=== PATIENT | male | born 1985 ===

== ENCOUNTER 2017-05-28 14:09 | Inpatient (IN) | payer MEDICAID, OTHER ==
[2017-05-28] MEDS ORDERED: Cefepime 1 GM in Sodium Chloride 0.9% 50 ML IVPB STA (14:48)
[2017-05-28 14:52] LABS: BASO % 0.6 % (0.0-2.0); EOS # 0.3 K/uL (0.0-0.7); HEMOGLOBIN 15.2 g/dL (12.0-18.0); LYMPH # 2.5 K/uL (1.0-4.3); LYMPH % 30.7 % (20.0-40.0); MEAN CELL VOLUME 85.9 fL (80.0-94.0); MEAN CORPUSCULAR HEMOGLOBIN 29.9 pg (27.0-31.0); MEAN CORPUSCULAR HGB CONC 34.8 g/dL (33.0-37.0); MEAN PLATELET VOLUME 7.7 fL (7.2-11.7); MONO # 0.8 K/uL (0.0-0.8); MONO % 10.4 % (0.0-10.0); NEUT # 4.3 K/uL (1.8-7.0); NEUT % 54.3 % (50.0-75.0); NRBC % 0.2 % (0.0-2.0); RBC 5.08 Mil/uL (4.40-5.90); RED CELL DISTRIBUTION WIDTH 13.4 % (11.5-14.5)
[2017-05-28 15:12] LABS: ALB/GLOB RATIO 1.2 (1.0-2.1); ALBUMIN 4.5 g/dL (3.5-5.0); ALT/SGPT 80 U/L (21-72); AST/SGOT 43 U/L (17-59); BLOOD UREA NITROGEN 13 mg/dL (9-20); CALCIUM 9.5 mg/dl (8.6-10.4); GFR AFRICAN-AMERICAN > 60; GFR NON-AFRICAN AMERICAN > 60
--- NOTE | 2017-05-28 15:14 | C.PDOC ---
History Of Present Illness 31 year old male presents to the ED for evaluation of an abscess/swelling to his left hand which started after a injury 1 month ago. 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 Patient was evaluated at a local hospital and given prescriptions for antibiotics, but states he could was unable to fill them because he could not afford it. Patient states the area has gotten bigger and more painful, and presents to the ED for further evaluation. He denies fever , chills, discharge, other injuries. Patient has h/i heroin IVDA, denies injecting into affected area. Time Seen by Provider: 05/28/17 14:22 Chief Complaint (Nursing): Abnormal Skin Integrity History Per: Patient History/Exam Limitations: no limitations Onset/Duration Of Symptoms: Other (1 month ) Current Symptoms Are (Timing): Still Present Location Of Injury: Left: Hand Quality Of Symptoms: Painful Severity: Moderate Additional History Per: Patient Past Medical History Reviewed: Historical Data, Nursing Documentation, Vital Signs Vital Signs: Last Vital Signs Temp 98.2 F 05/29/17 00:13 Pulse 65 05/29/17 00:13 Resp 20 05/29/17 00:13 BP 113/82 05/29/17 00:13 Pulse Ox 99 05/29/17 00:13 - Medical History PMH: No Chronic Diseases Surgical History: No Surg Hx Family History: States: No Known Family Hx - Social History Hx Alcohol Use: No Hx Substance Use: Yes Review Of Systems Except As Marked, All Systems Reviewed And Found Negative. Constitutional: Negative for: Fever, Chills Skin: Positive for: Other (abscess/swelling to left hand ) Neurological: Negative for: Weakness, Numbness Physical Exam - Physical Exam Appears: Well, Non-toxic, No Acute Distress Skin: Normal Color, Warm, Dry, Other (abscess to dorsum of left hand (approx3- 4cm in diameter), fluctuant. puncture wound at left thenar eminence with local swelling extending to dorsum of hand, (+) TTP, no overlying erythema/cellulitis ) Eye(s): bilateral: Normal Inspection Oral Mucosa: Moist Neck: Supple Cardiovascular: Rhythm Regular Respiratory: Normal Breath Sounds, No Rales, No Rhonchi, No Wheezing Extremity: Normal ROM, Capillary Refill (< 2 seconds all digits, (+) TTP at dorsum and thenar eminence of hand (left)) Extremity: Bilateral: Normal Color And Temperature Pulses: Left Radial: Normal, Right Radial: Normal Neurological/Psych: Oriented x3, Normal Sensation ED Course And Treatment - Laboratory Results Result Diagrams: 05/28/17 14:49 05/28/17 14:49 O2 Sat by Pulse Oximetry: 99 (on RA) Pulse Ox Interpretation: Normal - CT Scan/US CT Upper Left Extremity Other Rad Studies (CT/US): Read By Radiologist, Radiology Report Reviewed CT/US Interpretation: PROCEDURE: LEFT HAND CT WITH CONTRAST. HISTORY: LEFT HAND ABSCESS, R/O FOREIGN BODY. COMPARISON: None. TECHNIQUE: Evaluations CT of the proximal to mid hand is been performed with multiplanar reformatted datasets provided for interpretation following the intravenous administration of 100 cc of Omnipaque 350. The tuft of the long finger was not included in the CT examination. FINDINGS: A fluid collection measuring 2.6 x 1.6 x 2.6 cm ( transverse by a anteroposterior by superoinferior dimensions) is identified including a segment of the extensor digitorum longus tendon of the 3rd digit. The tendon appears within this collection. Enhancing in the periphery is present. There is no preliminary non contrast imaging. The pattern therefore suggest probable abscess with the finding representing infectious tenosynovitis including abscess or possibly infected ganglion. Further clinical correlation is advised. There is also prominent soft tissue/ phlegmon seen associate with the linear hyperdensity extending to the volar margins of this abscess between the 2nd and 3rd metacarpal bones at the mid diaphysis level terminating in the region of the hypo thenar eminence distally. It measures approximate 39.0 by 2 mm and is suspicious for a retained radiodense foreign body. None a does not appear to extend into the abscess in the dorsal hand soft tissues but also there appears to be a small area periosteal reaction at the radial side of the proximal metaphysis for left metacarpal bone suspicious for osteomyelitis. The differs diagnosis is posttraumatic periostitis. The foreign body not be visible on fluoroscopy. Prominent phlegmon is seen at the medial hand soft tissues without abscess including the deep portion of the thenar eminence. No fracture or destructive bony lesions appreciated throughout the bones of the left hand and there is no subluxation or dislocation identified either. No additional suspicious fluid collection. IMPRESSION: A linear retained radiodense foreign body is suspected in the bilateral hand soft tissues extending from the level of the deep thenar eminence through the space between the 2nd and 3rd metacarpal bones terminating in an abscess status surrounds the extensor digitorum longus tendon. While this linear density is faintly appreciable on CT , it is probably not visible on fluoroscopy and may be difficult to localize. Osteomyelitis is felt to likely be developing at the periosteum of the proximal metaphysis radial side 3rd metacarpal bone although this could be posttraumatic. You be difficult to exclude osteomyelitis here even with MRI most likely, however, MRI without contrast can be performed for additional characterization of this finding. Posttraumatic periostitis is unlikely given this reportedly a fragment from a palm leaf. Progress Note: Blood work, CT extremity ordered and reviewed. Patient given IV Vancomycin and Cefepime. He states he has PCN from childhood, but denies known reaction and has taken amoxicillin as adult without allergic reaction. 5:30pm- Discussed patient with Dr. Hanks hand surgeon - would like surgery resident to come and see patient, and admission under medical service. Resident called and made aware. 5:45pm- Spoke with Dr. Natalia Ladd hospitalist, states patient should be surgical admission instead. Dr. Hanks made aware, pending surgery resident evaluation and will get back to me. 6:15PM- Patient seen by assembler surgical garment, who discussed case with Dr. Hanks. She instructs that resident do I&D of abscess at bedside and discharge. Will speak with medicine for admission - patient has retained FB with tenosynovitis and possible osteomyelitis. 6:30pm- Spoke with hospitalist Dr. Natalia Ladd, agrees with admission to medical service for left hand retained foreign body, tenosynovitis, possible osteomyelitis. Disposition - Disposition Disposition: HOSPITALIZED Disposition Time: 18:36 Condition: STABLE - Clinical Impression Clinical Impression: Foreign body of hand, left, Infectious tenosynovitis, Osteomyelitis of hand - Scribe Statement The provider has reviewed the documentation as recorded by the Scribe (Yakelin Ladd) Provider Attestation: All medical record entries made by the Scribe were at my direction and personally dictated by me. I have reviewed the chart and agree that the record accurately reflects my personal performance of the history, physical exam, medical decision making, and the department course for this patient. I have also personally directed, reviewed, and agree with the discharge instructions and disposition. Decision To Admit - Pt Status Changed To: Hospital Disposition Of: Inpatient - Admit Certification Admit to Inpatient:: After my assessment, the patient will require hospitalization for at least two midnights. This is because of the severity of symptoms shown, intensity of services needed, and/or the medical risk in this patient being treated as an outpatient. - InPatient: Physician Admission Certification: I certify that this patient requires 2 or more midnights of care for the following reason:: see notes - . Bed Request Type: Regular Admitting Physician: Alfonzo Daniels Patient Diagnosis: Foreign body of hand, left, Infectious tenosynovitis, Osteomyelitis of hand
[2017-05-28] MEDS ORDERED: Cefepime IV 1 gm in Dextrose 1 GM/50 ML BAG IVPB ONE (15:30)
[2017-05-28] MEDS ORDERED: Iohexol 350mg/ml 100 ML ONE (15:52)
--- NOTE | 2017-05-28 17:52 | CT ---
PROCEDURE: LEFT HAND CT WITH CONTRAST HISTORY: LEFT HAND ABSCESS, R/O FOREIGN BODY COMPARISON: None TECHNIQUE: Evaluations CT of the proximal to mid hand is been performed with multiplanar reformatted datasets provided for interpretation following the intravenous administration of 100 cc of Omnipaque 350. The tuft of the long finger was not included in the CT examination. FINDINGS: A fluid collection measuring 2.6 x 1.6 x 2.6 cm (transverse by a anteroposterior by superoinferior dimensions) is identified including a segment of the extensor digitorum longus tendon of the 3rd digit. The tendon appears within this collection. Enhancing in the periphery is present. There is no preliminary non contrast imaging. The pattern therefore suggest probable abscess with the finding representing infectious tenosynovitis including abscess or possibly infected ganglion. Further clinical correlation is advised. There is also prominent soft tissue/ phlegmon seen associate with the linear hyperdensity extending to the volar margins of this abscess between the 2nd and 3rd metacarpal bones at the mid diaphysis level terminating in the region of the hypo thenar eminence distally. It measures approximate 39.0 by 2 mm and is suspicious for a retained radiodense foreign body. None a does not appear to extend into the abscess in the dorsal hand soft tissues but also there appears to be a small area periosteal reaction at the radial side of the proximal metaphysis for left metacarpal bone suspicious for osteomyelitis. The differs diagnosis is posttraumatic periostitis. The foreign body not be visible on fluoroscopy. Prominent phlegmon is seen at the medial hand soft tissues without abscess including the deep portion of the thenar eminence. No fracture or destructive bony lesions appreciated throughout the bones of the left hand and there is no subluxation or dislocation identified either. No additional suspicious fluid collection. IMPRESSION: A linear retained radiodense foreign body is suspected in the bilateral hand soft tissues extending from the level of the deep thenar eminence through the space between the 2nd and 3rd metacarpal bones terminating in an abscess status surrounds the extensor digitorum longus tendon. While this linear density is faintly appreciable on CT, it is probably not visible on fluoroscopy and may be difficult to localize. Osteomyelitis is felt to likely be developing at the periosteum of the proximal metaphysis radial side 3rd metacarpal bone although this could be posttraumatic. You be difficult to exclude osteomyelitis here even with MRI most likely, however, MRI without contrast can be performed for additional characterization of this finding. Posttraumatic periostitis is unlikely given this reportedly a fragment from a palm leaf. Discussed with Dr. Xavier with written down and read back verification 05/28/2017, 5:40 p.m..
[2017-05-28] MEDS ORDERED: Lidocaine 2% Inj (20ml) ONE (18:26)
--- NOTE | 2017-05-28 19:02 | CP.PCM.HP ---
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 Patient was evaluated at a local hospital and given prescriptions for antibiotics, but states he could was unable to fill them because he could not afford it. Patient states the abscess has gotten bigger and more painful, and presents to the ED for further evaluation. Patient had tried to drain it by stabbing his hand per patient's description. He said it was draining green pus but stopped when the opening healed. Patient was discharged from a local hospital with a prescription for antibiotics but could not fill prescriptions due to financial issues. Patient reports gradual onset of symptoms which have gotten worse. Pain is moderate but constant and aching throughout left hand. He denies fever, chills, discharge, other injuries. j PMH: none Surgical history: Appendectomy at age 17 Family history: non-contributory social: heroine (injections, last use a couple of days ago), Patient states he lives in a assisted house PMD: none Allergy: PCN Present on Admission - Present on Admission Any Indicators Present on Admission: No History of DVT/PE: No History of Uncontrolled Diabetes: No Urinary Catheter: No Decubitus Ulcer Present: No Past Patient History - Past Social History Smoking Status: Heavy Smoker > 10 Cigarettes Daily - PSYCHIATRIC Hx Substance Use: Yes Meds Allergies/Adverse Reactions: Allergies Allergy/AdvReac Type Severity Reaction Status Date / Time Penicillins Allergy Verified 05/28/17 14:26 Physical Exam - Constitutional Appears: Non-toxic, No Acute Distress - Head Exam Head Exam: ATRAUMATIC, NORMAL INSPECTION, NORMOCEPHALIC - Eye Exam Eye Exam: EOMI, Normal appearance Pupil Exam: NORMAL ACCOMODATION, PERRL - ENT Exam ENT Exam: Mucous Membranes Moist, Normal Exam - Neck Exam Neck exam: Positive for: Full Rom, Normal Inspection. Negative for: Thyromegaly - Respiratory Exam Respiratory Exam: Clear to Auscultation Bilateral, NORMAL BREATHING PATTERN - Cardiovascular Exam Cardiovascular Exam: REGULAR RHYTHM, +S1, +S2 - GI/Abdominal Exam GI & Abdominal Exam: Normal Bowel Sounds, Soft. absent: Diminished Bowel Sounds - Extremities Exam Extremities exam: Negative for: full ROM, pedal edema Additional comments: Left hand has palmar surface with healed puncture wound to thenar eminence, tenderness to palpation, abscess present on dorsal surface, decreased L hand strength, no erythema on hand - Back Exam Back exam: FULL ROM, NORMAL INSPECTION - Neurological Exam Neurological exam: CN II-XII Intact, Normal Gait, Oriented x3 Results - Vital Signs Recent Vital Signs: Last Vital Signs Temp 97.8 F 05/28/17 14:23 Pulse 75 05/28/17 14:23 Resp 20 05/28/17 14:23 BP 133/75 05/28/17 14:23 Pulse Ox 99 05/28/17 18:53 - Labs Result Diagrams: 05/28/17 14:49 05/28/17 14:49 Labs: Laboratory Results - last 24 hr 05/28/17 05/28/17 14:49 14:49 WBC 8.0 RBC 5.08 Hgb 15.2 Hct 43.6 MCV 85.9 MCH 29.9 MCHC 34.8 RDW 13.4 Plt Count 294 MPV 7.7 Neut % (Auto) 54.3 Lymph % (Auto) 30.7 Cannon % (Auto) 10.4 H Eos % (Auto) 4.0 Baso % (Auto) 0.6 Neut # (Auto) 4.3 Lymph # (Auto) 2.5 [place] # (Auto) 0.8 Eos # (Auto) 0.3 Baso # (Auto) 0.0 Sodium 140 Potassium 3.9 Chloride 100 Carbon Dioxide 27 Anion Gap 17 BUN 13 Creatinine 0.9 Est GFR ( Amer) > 60 Est GFR (Non-Af Amer) > 60 Random Glucose 101 Calcium 9.5 Total Bilirubin 0.7 AST 43 ALT 80 H Alkaline Phosphatase 73 Total Protein 8.4 H Albumin 4.5 Globulin 3.9 Albumin/Globulin Ratio 1.2 Assessment & Plan - Assessment and Plan (Free Text) Assessment: f/u CXR, EKG, PT INR OR 05/29 for I&D. 31 M with Left hand foreign body and abscess for OR 05/29/17 abscess of left hand, osteomyelitis CT upper extremity with Contrast Omnipaque 350 contrast: linear retained radiodense foreign body. 2nd and 3rd metacarpal bones terminating in absces around extensor digitorum longus tendon. osteomyelitis is likely to be developing at periosteum of proximal metaphysis radial side 3rd metacarpal bone. -NPO past midnight f/u blood culture COAG ordered CXR: no signs of active disease EKG ED: cefepime 1gm Cefepime IV 2gm Q12H Vancomycin 1gm IVPB Q12H Hand Surgeon Consult: Dr. Hanks Infectious disease consult: Dr. Hammer History of Heroine use Urine drug screen: positive for THC and Opioids Pain: Toradol 30mg IVP Q6H PRN, toradol 15mg IVP Q6H PRN Nicotine 14mg/ 24hr CQ 1 patch TD Daily Prophylaxis: Protonix 40mg PO QD SCDs, hold medical/chemical anticoagulation for procedure Patient is medically optimized for OR tomorrrow (05/29) for Incision and Drainage Nazanin Kim DO PGY1 - Date & Time Date: 05/28/17 Time: 21:17 <Alfonzo Daniels P - Last Filed: 05/29/17 03:04> Results - Vital Signs Recent Vital Signs: Last Vital Signs Temp 98.2 F 05/29/17 00:13 Pulse 65 05/29/17 00:13 Resp 20 05/29/17 00:13 BP 113/82 05/29/17 00:13 Pulse Ox 99 05/29/17 00:13 - Labs Result Diagrams: 05/28/17 14:49 05/28/17 14:49 Labs: Laboratory Results - last 24 hr 05/28/17 05/28/17 05/28/17 14:49 14:49 18:51 WBC 8.0 RBC 5.08 Hgb 15.2 Hct 43.6 MCV 85.9 MCH 29.9 MCHC 34.8 RDW 13.4 Plt Count 294 MPV 7.7 Neut % (Auto) 54.3 Lymph % (Auto) 30.7 Cannon % (Auto) 10.4 H Eos % (Auto) 4.0 Baso % (Auto) 0.6 Neut # (Auto) 4.3 Lymph # (Auto) 2.5 [place] # (Auto) 0.8 Eos # (Auto) 0.3 Baso # (Auto) 0.0 PT INR APTT Sodium 140 Potassium 3.9 Chloride 100 Carbon Dioxide 27 Anion Gap 17 BUN 13 Creatinine 0.9 Est GFR ( Amer) > 60 Est GFR (Non-Af Amer) > 60 Random Glucose 101 Calcium 9.5 Total Bilirubin 0.7 AST 43 ALT 80 H Alkaline Phosphatase 73 Total Protein 8.4 H Albumin 4.5 Globulin 3.9 Albumin/Globulin Ratio 1.2 Urine Opiates Screen Positive H Urine Methadone Screen Negative Ur Barbiturates Screen Negative Ur Phencyclidine Scrn Negative Ur Amphetamines Screen Negative U Benzodiazepines Scrn Negative U Oth Cocaine Metabols Negative U Cannabinoids Screen Positive H Blood Type Antibody Screen 05/28/17 05/28/17 19:57 20:01 WBC RBC Hgb Hct MCV MCH MCHC RDW Plt Count MPV Neut % (Auto) Lymph % (Auto) [place] % (Auto) Eos % (Auto) Baso % (Auto) Neut # (Auto) Lymph # (Auto) [place] # (Auto) Eos # (Auto) Baso # (Auto) PT 11.2 INR 1.0 APTT 33 Sodium Potassium Chloride Carbon Dioxide Anion Gap BUN Creatinine Est GFR ( Amer) Est GFR (Non-Af Amer) Random Glucose Calcium Total Bilirubin AST ALT Alkaline Phosphatase Total Protein Albumin Globulin Albumin/Globulin Ratio Urine Opiates Screen Urine Methadone Screen Ur Barbiturates Screen Ur Phencyclidine Scrn Ur Amphetamines Screen U Benzodiazepines Scrn U Oth Cocaine Metabols U Cannabinoids Screen Blood Type A POSITIVE Antibody Screen Negative Attending/Attestation - Attestation I have personally seen and examined this patient.: Yes I have fully participated in the care of the patient.: Yes I have reviewed all pertinent clinical information: Yes Notes (Text): 05/29/17 03:02 Left hand abscess dorsal to 3 metacarpal, h/o injury 1 month back with recent worsening, CT suspicious of foreign body, patient has h/o heroin abuse iv, tobacco abuse, mentions has hepc not treated, unsure of HIV. Plan Clinda and cefepime Hand surg MRI if hand surg suggest to r/o om Hep panel, hiv screening Counselled about substance abuse.
[2017-05-28 19:09] LABS: BARBITURATES, UR NEGATIVE (NEGATIVE); BENZODIAZEPINES, UR NEGATIVE (NEGATIVE); PHENCYCLIDINE, UR NEGATIVE (NEGATIVE)
--- NOTE | 2017-05-28 19:10 | CP.PCM.CON ---
History of Present Illness - History of Present Illness History of Present Illness: Plastics Hand surgery Consult Note for Dr. Hanks Reason for consult: foreign body and abscess of left hand 31 M with PMH of IVDA presents to [facility] for complaint of L hand wound and abscess. Patient was seen and evaluated in the ED. 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 Patient reports that he was moving a palm tree when a piece of the tree punctured his left hand. Patient states that he went to be seen at a local hospital. He was discharged with a prescription for antibiotics, but did not fill the prescriptions due to financial issues. He reports gradual onset of symptoms that have gotten progressively worse. He rates the pain as moderate. He describes it as constant and aching located throughout left hand. Movement makes pain worse while rest alleviates it. He admits to associated chills. Denies fevers, chest pain, sob, palpitations, nausea/vomtining, diarrhea, numbness/tingling. PMD: denies PMH: IVDA Meds: denies Allergy: PCN PSH: Appendectomy at age 17 FH: non-contributory Social: current smoker - smokes few cigarettes per day, denies EtOH, admits to illicit drug use - IV heroin, states he last used a "couple" bags was yesterday Review of Systems - Review of Systems All systems: reviewed and no additional remarkable complaints except (12 point ROS performed and found to be negative unless otherwise stated in HPI) Past Patient History - Past Social History Smoking Status: Heavy Smoker > 10 Cigarettes Daily - PSYCHIATRIC Hx Substance Use: Yes Meds Allergies/Adverse Reactions: Allergies Allergy/AdvReac Type Severity Reaction Status Date / Time Penicillins Allergy Verified 05/28/17 14:26 - Medications Medications: Current Medications Cefepime HCl (Maxipime Iv 2 Gm Premix) 2 gm in 100 mls @ 200 mls/hr IVPB Q12H DELILAH PRN Reason: Protocol Stop: 06/03/17 03:01 Vancomycin/Sodium Chloride (Vancomycin 1 Gm/Ns 200 Ml) 1 gm in 200 mls @ 166.6 mls/hr IVPB Q12H DELILAH PRN Reason: Protocol Stop: 06/02/17 04:01 Ketorolac Tromethamine (Toradol) 30 mg IVP Q6 PRN PRN Reason: Pain, severe (8-10) Ketorolac Tromethamine (Toradol) 15 mg IVP Q6 PRN PRN Reason: Pain, moderate (4-7) Nicotine (Nicoderm Cq) 1 patch TD DAILY [facility] Pantoprazole Sodium (Protonix Ec Tab) 40 mg PO DAILY [facility] Saccharomyces Boulardii (Florastor) 250 mg PO BID DELILAH Physical Exam - Constitutional Appears: Non-toxic, No Acute Distress - Head Exam Head Exam: ATRAUMATIC, NORMOCEPHALIC - Eye Exam Eye Exam: EOMI, Normal appearance Pupil Exam: PERRL - ENT Exam ENT Exam: Mucous Membranes Moist - Neck Exam Neck exam: Negative for: Tenderness - Respiratory Exam Respiratory Exam: NORMAL BREATHING PATTERN - Cardiovascular Exam Cardiovascular Exam: REGULAR RHYTHM - GI/Abdominal Exam GI & Abdominal Exam: Soft. absent: Distended, Guarding, Rebound, Tenderness - Extremities Exam Extremities exam: Positive for: normal capillary refill, pedal pulses present. Negative for: calf tenderness Additional comments: L hand: palmar surface with healed puncture wound to thenar eminence, abscess present on dosrum surface, tender to palpation, decreased L hand strength, no evidence of erythema anywhere - Back Exam Back exam: absent: CVA tenderness (L), CVA tenderness (R) - Neurological Exam Neurological exam: Alert, CN II-XII Intact, Oriented x3 - Psychiatric Exam Psychiatric exam: Normal Affect, Normal Mood - Skin Skin Exam: Dry, Intact, Normal Color, Warm Results - Vital Signs Recent Vital Signs: Last Vital Signs Temp 97.8 F 05/28/17 14:23 Pulse 75 05/28/17 14:23 Resp 20 05/28/17 14:23 BP 133/75 05/28/17 14:23 Pulse Ox 99 05/28/17 18:53 - Labs Result Diagrams: 05/28/17 14:49 05/28/17 14:49 Labs: Laboratory Results - last 24 hr 05/28/17 05/28/17 14:49 14:49 WBC 8.0 RBC 5.08 Hgb 15.2 Hct 43.6 MCV 85.9 MCH 29.9 MCHC 34.8 RDW 13.4 Plt Count 294 MPV 7.7 Neut % (Auto) 54.3 Lymph % (Auto) 30.7 [place] % (Auto) 10.4 H Eos % (Auto) 4.0 Baso % (Auto) 0.6 Neut # (Auto) 4.3 Lymph # (Auto) 2.5 [place] # (Auto) 0.8 Eos # (Auto) 0.3 Baso # (Auto) 0.0 Sodium 140 Potassium 3.9 Chloride 100 Carbon Dioxide 27 Anion Gap 17 BUN 13 Creatinine 0.9 Est GFR ( Amer) > 60 Est GFR (Non-Af Amer) > 60 Random Glucose 101 Calcium 9.5 Total Bilirubin 0.7 AST 43 ALT 80 H Alkaline Phosphatase 73 Total Protein 8.4 H Albumin 4.5 Globulin 3.9 Albumin/Globulin Ratio 1.2 Assessment & Plan - Assessment and Plan (Free Text) Plan: 31 M with L hand foreign body and abscess -NPO -IV fluids -IV antibiotics -Analgesics PRN -I&D with washout in OR tomorrow morning, time pending -Discussed with Dr. Demario Mcallister PGY1
[2017-05-28 19:15] LABS: OPIATES, UR POSITIVE (NEGATIVE)
[2017-05-28] MEDS: Vancomycin 1 gm/NS 200 ml 1 GM/200 ML BAG IVPB SCH ×2 (19:15→19:16)
[2017-05-28] MEDS ORDERED: Saccharomyces Boulardi 250 mg Cap PO SCH (20:00)
[2017-05-28] MEDS ORDERED: Pantoprazole 40 mg EC Tab PO SCH (20:00)
[2017-05-28] MEDS ORDERED: Pantoprazole 40 mg EC Tab PO ONE (20:04)
[2017-05-28 20:11] LABS: PROTHROMBIN TIME 11.2 SECONDS (9.7-12.2)
[2017-05-28 20:35] VITALS: RESP 20
[2017-05-28] MEDS: Clindamycin 300 MG in Sodium Chloride 0.9% 100 ML IVPB SCH (22:58)
[2017-05-29 00:15] VITALS: BP 113/82; PULSE 65; TEMP 98.2; O2SAT 99
[2017-05-29] MEDS ORDERED: Cefepime IV 2 gm in Dextrose 2 GM/100 ML BAG IVPB SCH (03:00)
[2017-05-29] MEDS: Clindamycin 300 MG in Sodium Chloride 0.9% 100 ML IVPB SCH (05:30)
--- NOTE | 2017-05-29 07:54 | CP.PCM.DIS ---
<Edward Jaquez S - Last Filed: 05/29/17 08:16> Provider - Provider Date of Admission: 05/28/17 18:36 Attending physician: Dr. Pacheco Ladd Consults: Surgery: Dr. Hanks Time Spent in preparation of Discharge (in minutes): 35 Diagnosis - Discharge Diagnosis (1) Left against medical advice Status: Acute Hospital Course - Lab Results Lab Results: Most Recent Lab Values WBC 8.0 K/uL (4.8-10.8) 05/28/17 14:49 RBC 5.08 Mil/uL (4.40-5.90) 05/28/17 14:49 Hgb 15.2 g/dL (12.0-18.0) 05/28/17 14:49 Hct 43.6 % (35.0-51.0) 05/28/17 14:49 MCV 85.9 fL (80.0-94.0) 05/28/17 14:49 MCH 29.9 pg (27.0-31.0) 05/28/17 14:49 MCHC 34.8 g/dL (33.0-37.0) 05/28/17 14:49 RDW 13.4 % (11.5-14.5) 05/28/17 14:49 Plt Count 294 K/uL (130-400) 05/28/17 14:49 MPV 7.7 fL (7.2-11.7) 05/28/17 14:49 Neut % (Auto) 54.3 % (50.0-75.0) 05/28/17 14:49 Lymph % (Auto) 30.7 % (20.0-40.0) 05/28/17 14:49 [place] % (Auto) 10.4 % (0.0-10.0) H 05/28/17 14:49 Eos % (Auto) 4.0 % (0.0-4.0) 05/28/17 14:49 Baso % (Auto) 0.6 % (0.0-2.0) 05/28/17 14:49 Neut # (Auto) 4.3 K/uL (1.8-7.0) 05/28/17 14:49 Lymph # (Auto) 2.5 K/uL (1.0-4.3) 05/28/17 14:49 [place] # (Auto) 0.8 K/uL (0.0-0.8) 05/28/17 14:49 Eos # (Auto) 0.3 K/uL (0.0-0.7) 05/28/17 14:49 Baso # (Auto) 0.0 K/uL (0.0-0.2) 05/28/17 14:49 PT 11.2 SECONDS (9.7-12.2) 05/28/17 19:57 INR 1.0 05/28/17 19:57 APTT 33 SECONDS (21-34) 05/28/17 19:57 Sodium 140 mmol/L (132-148) 05/28/17 14:49 Potassium 3.9 mmol/L (3.6-5.2) 05/28/17 14:49 Chloride 100 mmol/L (98-107) 05/28/17 14:49 Carbon Dioxide 27 mmol/L (22-30) 05/28/17 14:49 Anion Gap 17 (10-20) 05/28/17 14:49 BUN 13 mg/dL (9-20) 05/28/17 14:49 Creatinine 0.9 mg/dL (0.8-1.5) 05/28/17 14:49 Est GFR ( Amer) > 60 05/28/17 14:49 Est GFR (Non-Af Amer) > 60 05/28/17 14:49 Random Glucose 101 mg/dL (75-110) 05/28/17 14:49 Calcium 9.5 mg/dl (8.6-10.4) 05/28/17 14:49 Total Bilirubin 0.7 mg/dL (0.2-1.3) 05/28/17 14:49 AST 43 U/L (17-59) 05/28/17 14:49 ALT 80 U/L (21-72) H 05/28/17 14:49 Alkaline Phosphatase 73 U/L (38-126) 05/28/17 14:49 Total Protein 8.4 g/dL (6.3-8.3) H 05/28/17 14:49 Albumin 4.5 g/dL (3.5-5.0) 05/28/17 14:49 Globulin 3.9 gm/dL (2.2-3.9) 05/28/17 14:49 Albumin/Globulin Ratio 1.2 (1.0-2.1) 05/28/17 14:49 Urine Opiates Screen Positive (NEGATIVE) H 05/28/17 18:51 Urine Methadone Screen Negative (NEGATIVE) 05/28/17 18:51 Ur Barbiturates Screen Negative (NEGATIVE) 05/28/17 18:51 Ur Phencyclidine Scrn Negative (NEGATIVE) 05/28/17 18:51 Ur Amphetamines Screen Negative (NEGATIVE) 05/28/17 18:51 U Benzodiazepines Scrn Negative (NEGATIVE) 05/28/17 18:51 U Oth Cocaine Metabols Negative (NEGATIVE) 05/28/17 18:51 U Cannabinoids Screen Positive (NEGATIVE) H 05/28/17 18:51 Blood Type A POSITIVE 05/28/17 20:01 Antibody Screen Negative 05/28/17 20:01 - Hospital Course Hospital Course: Initial note: "31 year old male presents to the ED for evaluation of an abscess/swelling to his left hand which started after a 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 Patient was evaluated at a local hospital and given prescriptions for antibiotics, but states he could was unable to fill them because he could not afford it. Patient states the abscess has gotten bigger and more painful, and presents to the ED for further evaluation. Patient had tried to drain it by stabbing his hand per patient's description. He said it was draining green pus but stopped when the opening healed. Patient was discharged from a local hospital with a prescription for antibiotics but could not fill prescriptions due to financial issues. Patient reports gradual onset of symptoms which have gotten worse. Pain is moderate but constant and aching throughout left hand. He denies fever, chills, discharge, other injuries." Hospital course: Patient admitted for retained foreign object and tenosynovitis in the left hand. Patient was to undergo I&D in the OR; however, he was witnessed eating a sandwich this morning at around 7:45 AM. Patient states that he did not know he was supposed to be NPO despite multiple people explaining this to him including surgical team. Patient's IV line came out early in the morning, and he refused re-insertion. I saw the patient in the presence of Dr. Hanks and the surgical technology instructor team. Dr. Hanks explained to the patient that since he will not be getting the surgery today due to his eating, he may be discharged home with outpatient follow up. At this point, the patient proceeded to put his clothes on and vocalize his intentions of leaving. He also stated that he does not wish to follow up in Dr. Hanks's office. The patient has the capacity to make this informed decision and understands explanation of the current medical problem and risks of leaving. The risks of leaving versus the benefits of staying were discussed with the patient, and I was going to provide him with follow up instructions for the [facility], Dr. Hanks's office information , and an antibiotic prescription. However, the patient had left the floor while I was notifying the attending. Code Echo was called at 7:54 AM since the patient eloped. This is a summary of the hospital course. For more information, refer to the medical records. Discharge Exam - Additional Findings Additional findings: Patient refused physical exam before his elopement. Discharge Plan - Follow Up Plan Condition: STABLE Disposition: AGAINST MEDICAL ADVICE <Pacheco Ladd - Last Filed: 05/29/17 15:19> Provider - Provider Date of Admission: 05/28/17 18:36 Attending physician: Alfonzo Daniels MD Hospital Course - Lab Results Lab Results: Most Recent Lab Values WBC 8.0 K/uL (4.8-10.8) 05/28/17 14:49 RBC 5.08 Mil/uL (4.40-5.90) 05/28/17 14:49 Hgb 15.2 g/dL (12.0-18.0) 05/28/17 14:49 Hct 43.6 % (35.0-51.0) 05/28/17 14:49 MCV 85.9 fL (80.0-94.0) 05/28/17 14:49 MCH 29.9 pg (27.0-31.0) 05/28/17 14:49 MCHC 34.8 g/dL (33.0-37.0) 05/28/17 14:49 RDW 13.4 % (11.5-14.5) 05/28/17 14:49 Plt Count 294 K/uL (130-400) 05/28/17 14:49 MPV 7.7 fL (7.2-11.7) 05/28/17 14:49 Neut % (Auto) 54.3 % (50.0-75.0) 05/28/17 14:49 Lymph % (Auto) 30.7 % (20.0-40.0) 05/28/17 14:49 [place] % (Auto) 10.4 % (0.0-10.0) H 05/28/17 14:49 Eos % (Auto) 4.0 % (0.0-4.0) 05/28/17 14:49 Baso % (Auto) 0.6 % (0.0-2.0) 05/28/17 14:49 Neut # (Auto) 4.3 K/uL (1.8-7.0) 05/28/17 14:49 Lymph # (Auto) 2.5 K/uL (1.0-4.3) 05/28/17 14:49 [place] # (Auto) 0.8 K/uL (0.0-0.8) 05/28/17 14:49 Eos # (Auto) 0.3 K/uL (0.0-0.7) 05/28/17 14:49 Baso # (Auto) 0.0 K/uL (0.0-0.2) 05/28/17 14:49 PT 11.2 SECONDS (9.7-12.2) 05/28/17 19:57 INR 1.0 05/28/17 19:57 APTT 33 SECONDS (21-34) 05/28/17 19:57 Sodium 140 mmol/L (132-148) 05/28/17 14:49 Potassium 3.9 mmol/L (3.6-5.2) 05/28/17 14:49 Chloride 100 mmol/L (98-107) 05/28/17 14:49 Carbon Dioxide 27 mmol/L (22-30) 05/28/17 14:49 Anion Gap 17 (10-20) 05/28/17 14:49 BUN 13 mg/dL (9-20) 05/28/17 14:49 Creatinine 0.9 mg/dL (0.8-1.5) 05/28/17 14:49 Est GFR ( Amer) > 60 05/28/17 14:49 Est GFR (Non-Af Amer) > 60 05/28/17 14:49 Random Glucose 101 mg/dL (75-110) 05/28/17 14:49 Calcium 9.5 mg/dl (8.6-10.4) 05/28/17 14:49 Total Bilirubin 0.7 mg/dL (0.2-1.3) 05/28/17 14:49 AST 43 U/L (17-59) 05/28/17 14:49 ALT 80 U/L (21-72) H 05/28/17 14:49 Alkaline Phosphatase 73 U/L (38-126) 05/28/17 14:49 Total Protein 8.4 g/dL (6.3-8.3) H 05/28/17 14:49 Albumin 4.5 g/dL (3.5-5.0) 05/28/17 14:49 Globulin 3.9 gm/dL (2.2-3.9) 05/28/17 14:49 Albumin/Globulin Ratio 1.2 (1.0-2.1) 05/28/17 14:49 Urine Opiates Screen Positive (NEGATIVE) H 05/28/17 18:51 Urine Methadone Screen Negative (NEGATIVE) 05/28/17 18:51 Ur Barbiturates Screen Negative (NEGATIVE) 05/28/17 18:51 Ur Phencyclidine Scrn Negative (NEGATIVE) 05/28/17 18:51 Ur Amphetamines Screen Negative (NEGATIVE) 05/28/17 18:51 U Benzodiazepines Scrn Negative (NEGATIVE) 05/28/17 18:51 U Oth Cocaine Metabols Negative (NEGATIVE) 05/28/17 18:51 U Cannabinoids Screen Positive (NEGATIVE) H 05/28/17 18:51 Blood Type A POSITIVE 05/28/17 20:01 Antibody Screen Negative 05/28/17 20:01 Attending/Attestation - Attestation I have personally seen and examined this patient.: No I have fully participated in the care of the patient.: Yes I have reviewed all pertinent clinical information, including history, physical exam and plan: Yes Notes (Text): 05/29/17 15:17 Patient was not able to be seen this morning as I was notified by the resident that the patient absconded. As came to see patient, patient had already left and left without waiting for Rx or follow up instructions. Pacheco Ladd D.O. 05/29/17 15:18
--- NOTE | 2017-05-29 08:00 | CP.PCM.PCO ---
Physician Communication Note - Physician Communication Note Physician Communication Note: Patient with left hand foreign body in palm Assessment & Plan - Assessment and Plan (Free Text) Assessment: Patient with foreign body to left palm. ER insisted on patient to be admitted for surgery today despite no evidence of acute infection. He has a wood splinter in his hand for 1 month. He recently re-started using heroin. The CT scan shows swelling and edema around the splinter which radiology is reading as abscess and tenosuynovitis. PE: There is a large 4 cm x 4 cm rubbery nodule to the dorsum of the hand. Small puncture to the palm. There is no cellulitis, no erythema, Full range of motion to all the fingers. Minimal pain with motion. There is no fusiform swelling to any of the digits. There is no pain out of proportion to the fingers or thumb. There is no drainage from the palmar puncture wound. WBC is normal. CT scan shows foreign body between the index and long fingers extending from the volar surface to the dorsum between the mid-metacarpals. Plan: Patient with foreign body to left palm. No evidence of infectious tenosynovitis , there is synovitis to the dorsum of the hand. Patient admitted via ER last night for surgery today because the ER attaending felt he would not be compliant with being scheduled as out patient. He was fed last night thus surgery was scheduled for this morning. This morning at 6:45 am , the patient is eating again because he was "hungry". Denies any knowledge of having surgery today despite being told by several people including the surgery team last night. He may be discharged today and follow up in the [facility] so he can be electively scheduled for removal of the foregin body. He needs to show that he will be compliant with instructions and be able to participate in his post- op care.
[2017-05-30] MEDS ORDERED: Influenza Vaccine 60 mcg/0.5 mL SYR (4YR UP) IM ONE (10:00)
[2017-05-30] MEDS ORDERED: Pneumococcal 23-Valent Vaccine IM ONE (10:00)
--- NOTE | 2017-05-30 13:02 | CARD ---
APPROVED REPORT EKG Measurement Heart [id number] <Conclusion> Normal sinus rhythm Normal ECG
== END 2017-05-29 07:55 | disposition left against medical advice (07) | DRG 914 ==
LOC: C.ER 14:09 → C.9E 18:36 → C.3T 19:31
PROVIDERS: ADMIT Internal Medicine; ATTEND Internal Medicine
DX: S61.442A Puncture wound with foreign body of left hand, initial encounter (principal); M86.9 Osteomyelitis, unspecified; L02.512 Cutaneous abscess of left hand; F11.10 Opioid abuse, uncomplicated; W45.8XXA Other foreign body or object entering through skin, initial encounter; Y93.H2 Activity, gardening and landscaping; F17.210 Nicotine dependence, cigarettes, uncomplicated; M65.9 Synovitis and tenosynovitis, unspecified

== ENCOUNTER 2017-05-31 12:18 | Emergency (ER) | payer MEDICAID, OTHER | END 2017-05-31 13:05 | disposition left against medical advice (07) | LOC: C.ER 12:18 | DX: Z02.89 Encounter for other administrative examinations (principal); M79.643 Pain in unspecified hand ==

== ENCOUNTER 2017-06-16 19:09 | Inpatient (IN) | payer MEDICAID, OTHER ==
[2017-06-16 20:13] LABS: BASO % 0.4 % (0.0-2.0); EOS # 0.2 K/uL (0.0-0.7); EOS % 1.4 % (0.0-4.0); HEMOGLOBIN 13.7 g/dL (12.0-18.0); LYMPH # 3.7 K/uL (1.0-4.3); LYMPH % 27.1 % (20.0-40.0); MEAN CELL VOLUME 86.3 fL (80.0-94.0); MEAN CORPUSCULAR HEMOGLOBIN 29.1 pg (27.0-31.0); MEAN CORPUSCULAR HGB CONC 33.7 g/dL (33.0-37.0); MEAN PLATELET VOLUME 7.6 fL (7.2-11.7); MONO # 1.2 K/uL (0.0-0.8); MONO % 8.6 % (0.0-10.0); NEUT # 8.4 K/uL (1.8-7.0); NEUT % 62.5 % (50.0-75.0); RBC 4.69 Mil/uL (4.40-5.90); RED CELL DISTRIBUTION WIDTH 13.5 % (11.5-14.5)
[2017-06-16 20:16] LABS: WHITE BLOOD COUNT 13.5 K/uL (4.8-10.8)
[2017-06-16 20:29] LABS: ALT/SGPT 112 U/L (21-72); AST/SGOT 59 U/L (17-59); BLOOD UREA NITROGEN 12 mg/dL (9-20); GFR AFRICAN-AMERICAN > 60; GFR NON-AFRICAN AMERICAN > 60
[2017-06-16 20:32] LABS: SQUAMOUS EPITHIAL < 1 /hpf (0-5); URINE BACTERIA RARE (<OCC); URINE BILIRUBIN NEGATIVE (NEGATIVE); URINE BLOOD NEGATIVE (NEGATIVE); URINE CLARITY Clear (Clear); URINE COLOR Yellow (YELLOW); URINE GLUCOSE (UA) NORMAL (Normal); URINE LEUKOCYTE ESTERASE NEG Leu/uL (Negative); URINE PROTEIN NEGATIVE (NEGATIVE); URINE UROBILINOGEN NORMAL mg/dL (0.2-1.0)
[2017-06-16 20:44] LABS: BARBITURATES, UR NEGATIVE (NEGATIVE); BENZODIAZEPINES, UR NEGATIVE (NEGATIVE); PHENCYCLIDINE, UR NEGATIVE (NEGATIVE)
[2017-06-16 20:46] LABS: OPIATES, UR POSITIVE (NEGATIVE)
--- NOTE | 2017-06-16 21:05 | C.PDOC ---
History Of Present Illness 31 year old male presents to the ER requesting detox from heroin. Patient reports he uses 20-30 bag a day, last use was 2-3 hours ago. Denies suicidal ideation or homicidal ideation. Time Seen by Provider: 06/16/17 19:32 Chief Complaint (Nursing): Substance Abuse History Per: Patient History/Exam Limitations: no limitations Onset/Duration Of Symptoms: Days Current Symptoms Are (Timing): Still Present Suicide/Self Injury Attempted (Context): None Modifying Factor(s): Narcotics Associated Symptoms: denies: Suicidal Thoughts, Other (Homicidal ideation) Involuntary Hold By: None Recent travel outside of the [place]: No Past Medical History Reviewed: Historical Data, Nursing Documentation, Vital Signs Vital Signs: Last Vital Signs Temp 98.5 F 06/16/17 21:12 Pulse 88 06/16/17 21:12 Resp 20 06/16/17 21:12 BP 120/70 06/16/17 21:12 Pulse Ox 96 06/16/17 21:12 - Medical History PMH: No Chronic Diseases Surgical History: Appendectomy Family History: States: Unknown Family Hx - Social History Hx Alcohol Use: No Hx Substance Use: Yes (HEROIN/MARIJUANA) - Immunization History Hx Tetanus Toxoid Vaccination: Yes Hx Influenza Vaccination: No Hx Pneumococcal Vaccination: No Review Of Systems Except As Marked, All Systems Reviewed And Found Negative. Physical Exam - Physical Exam Appears: Non-toxic, No Acute Distress Skin: Normal Color, Warm, Dry Head: Atraumatic, Normacephalic Eye(s): bilateral: Normal Inspection Oral Mucosa: Moist Chest: Symmetrical, No Tenderness Cardiovascular: Rhythm Regular Respiratory: Normal Breath Sounds, No Rales, No Rhonchi, No Wheezing Gastrointestinal/Abdominal: Soft, No Tenderness Extremity: Other (left hand dorsum chronic swelling/abscess (retained foreign body)) Neurological/Psych: Oriented x3, Normal Speech ED Course And Treatment - Laboratory Results Result Diagrams: 06/16/17 20:09 06/16/17 20:09 O2 Sat by Pulse Oximetry: 95 (Room air) Pulse Ox Interpretation: Normal Progress Note: Blood work, UA, UDS ordered and reviewed. Patient seen by crisis counselor. Patient's left hand swelling/abscess is chronic, has previously been admitted for same (by me at this hospital) and left AMA prior to surgery - has retained foreign body (from palm tree). No evdience of acute infection at this time. Patient is medically cleared - accepted by Dr. Berger for heroin detox admission. Disposition - Disposition Disposition: HOSPITALIZED - Scribe Statement The provider has reviewed the documentation as recorded by the Scribe Rudolph Peterson All medical record entries made by the Scribe were at my direction and personally dictated by me. I have reviewed the chart and agree that the record accurately reflects my personal performance of the history, physical exam, medical decision making, and the department course for this patient. I have also personally directed, reviewed, and agree with the discharge instructions and disposition.
--- NOTE | 2017-06-16 21:11 | PCM.BM ---
<Geo Romero - Last Filed: 06/16/17 21:10> Treatment Plan Problems - Problems identified on initial assessmt potential for opiate withdrawal Status: Active Treatment assets and liabiliti Patient Assests: cooperative, cognitively intact Patient Liabilities: substance abuse, medical problems - Milieu Protocol Maintain good personal hygiene: daily Encourage regular showers, daily Remind patient to perform daily oral care, daily Assist patient to perform ADL's Conduct patient checks and document Observation sheet: Q15 minutes Maintain personal safety: every shift Educate patient to report safety concerns to staff, every shift Monitor environment for contraband/sharps Medication safety: Monitor for expected outcome, potential side effects: daily, Assess barriers to learning: daily, Assess readiness for medication education: daily <Frances Berger - Last Filed: 06/17/17 12:00> - Diagnosis (1) Opioid use disorder, severe, dependence Status: Acute Interventions: 06/17/17 12:00 * Assess 7x/week regarding severity of withdrawal * Educate regarding risks, benefits, side effects and alternatives of medications * Use Motivational Interviewing for abstinence * Use CBT for relapse prevention * Medication management for withdrawal symptoms * Encourage medication assisted treatment *
[2017-06-16] MEDS ORDERED: Buprenorphine Hydrochloride 2 mg SL ONE ×2 (21:31→22:41)
[2017-06-16] MEDS ORDERED: Aluminum Hydroxide/Magnesium Hydroxide Susp (30 mL) PO PRN (21:43)
[2017-06-17] MEDS: Buprenorphine Hydrochloride 2 mg SL SCH (09:25)
--- NOTE | 2017-06-17 09:49 | CP.PCM.CON ---
History of Present Illness - History of Present Illness History of Present Illness: HPI: Patient is a 31 year old male with a history of heroin use disorder who presents for detox. Medicine team was consulted for swelling or the LEFT hand. Patient says while he was in [place] working on [employer] he pierced his hand with a palm frond. Patient Review of Systems - Review of Systems All systems: reviewed and no additional remarkable complaints except (as per HPI ) Past Patient History - Infectious Disease Hx of Infectious Diseases: None - Past Social History Smoking Status: Heavy Smoker > 10 Cigarettes Daily - CARDIAC Hx Hypertension: No - PULMONARY Hx Tuberculosis: No - NEUROLOGICAL Hx Seizures: No - HEENT Hx HEENT Problems: No - RENAL Hx Chronic Kidney Disease: No - ENDOCRINE/METABOLIC Hx Endocrine Disorders: No - HEMATOLOGICAL/ONCOLOGICAL Hx Human Immunodeficiency Virus (HIV): No - INTEGUMENTARY Hx Dermatological Problems: No Other/Comment: osteomyelitis abscess - MUSCULOSKELETAL/RHEUMATOLOGICAL Hx Falls: No - GASTROINTESTINAL Hx Gastrointestinal Disorders: No - GENITOURINARY/GYNECOLOGICAL Hx Sexually Transmitted Disorders: No - PSYCHIATRIC Hx Substance Use: Yes - SURGICAL HISTORY Hx Appendectomy: Yes - ANESTHESIA Hx Anesthesia: Yes Hx Anesthesia Reactions: No Hx Malignant Hyperthermia: No Meds Allergies/Adverse Reactions: Allergies Allergy/AdvReac Type Severity Reaction Status Date / Time Penicillins Allergy RASH Verified 06/02/17 23:26 - Medications Medications: Current Medications Al Hydrox/Mg Hydrox/Simethicone (Maalox 30 Ml) 30 ml PO TID PRN PRN Reason: Indigestion / Heartburn Buprenorphine HCl (Subutex) 0 mg SL .TAPER DELILAH PRN Reason: Taper Stop: 06/22/17 09:59 Last Admin: 06/17/17 09:25 Dose: 8 mg Clindamycin HCl (Cleocin) 300 mg PO Q6H DELILAH PRN Reason: Protocol Clonidine HCl (Catapres) 0.1 mg PO Q8 PRN PRN Reason: COWS Score More or Equal to 5 Hydroxyzine HCl (Atarax) 50 mg PO Q6H PRN PRN Reason: Anxiety Loperamide HCl (Imodium) 2 mg PO Q8 PRN PRN Reason: Diarrhea Ondansetron HCl (Zofran Tab) 4 mg PO Q8 PRN PRN Reason: Nausea/Vomiting Saccharomyces Boulardii (Florastor) 250 mg PO DAILY DELILAH Trazodone HCl (Desyrel) 100 mg PO HS PRN PRN Reason: Insomnia Physical Exam - Constitutional Appears: Non-toxic, No Acute Distress, Unkempt - Head Exam Head Exam: ATRAUMATIC, NORMAL INSPECTION, NORMOCEPHALIC - Eye Exam Eye Exam: EOMI, Normal appearance, PERRL - ENT Exam ENT Exam: Mucous Membranes Moist, Normal Exam - Neck Exam Neck exam: Positive for: Normal Inspection - Respiratory Exam Respiratory Exam: Clear to Auscultation Bilateral, NORMAL BREATHING PATTERN - Cardiovascular Exam Cardiovascular Exam: RRR, +S1, +S2 - GI/Abdominal Exam GI & Abdominal Exam: Normal Bowel Sounds, Soft. absent: Distended, Tenderness - Extremities Exam Extremities exam: Positive for: normal capillary refill. Negative for: calf tenderness, pedal edema Additional comments: LEFT hand: swelling of the palmar and dorsal aspect of the hand overlying the 2nd metacarpal on the palmar aspect and the 3rd metacarpal on the dorsal aspect ; there is a healing wound overlying the area of swelling on the dorsal aspect of the hand; decreased customer contact specialist strength of the LEFT hand as compared to the RIGHT hand No erythema, drainage, or loss of sensation - Neurological Exam Neurological exam: Alert, Oriented x3 - Psychiatric Exam Psychiatric exam: Normal Affect, Normal Mood - Skin Skin Exam: Dry, Intact, Normal Color, Warm Results - Vital Signs Recent Vital Signs: Last Vital Signs Temp 98.2 F 06/17/17 05:44 Pulse 80 06/17/17 05:44 Resp 18 06/17/17 05:44 BP 110/68 06/17/17 05:44 Pulse Ox 99 06/17/17 05:44 - Labs Result Diagrams: 06/16/17 20:09 06/16/17 20:09 Labs: Laboratory Results - last 24 hr 06/16/17 06/16/17 06/16/17 20:09 20:09 20:23 WBC 13.5 H D RBC 4.69 Hgb 13.7 Hct 40.5 MCV 86.3 MCH 29.1 MCHC 33.7 RDW 13.5 Plt Count 316 MPV 7.6 Neut % (Auto) 62.5 Lymph % (Auto) 27.1 [place] % (Auto) 8.6 Eos % (Auto) 1.4 Baso % (Auto) 0.4 Neut # (Auto) 8.4 H Lymph # (Auto) 3.7 [place] # (Auto) 1.2 H Eos # (Auto) 0.2 Baso # (Auto) 0.0 Sodium 143 Potassium 4.5 Chloride 105 Carbon Dioxide 25 Anion Gap 16 BUN 12 Creatinine 1.1 Est GFR ( Amer) > 60 Est GFR (Non-Af Amer) > 60 Random Glucose 83 Calcium 9.0 Total Bilirubin 0.3 AST 59 D ALT 112 H D Alkaline Phosphatase 64 Total Protein 7.9 Albumin 4.0 Globulin 3.9 Albumin/Globulin Ratio 1.0 Urine Color Yellow Urine Clarity Clear Urine pH 5.0 Ur Specific [place] 1.024 Urine Protein Negative Urine Glucose (UA) Normal Urine Ketones Trace Urine Blood Negative Urine Nitrate Negative Urine Bilirubin Negative Urine Urobilinogen Normal Ur Leukocyte Esterase Neg Urine WBC (Auto) 1 Urine RBC (Auto) 2 Ur Squamous Epith Cells < 1 Ur Transition Epith Cell < 1 Urine Bacteria Rare Urine Opiates Screen Urine Methadone Screen Ur Barbiturates Screen Ur Phencyclidine Scrn Ur Amphetamines Screen U Benzodiazepines Scrn U Oth Cocaine Metabols U Cannabinoids Screen Alcohol, Quantitative < 10 06/16/17 20:23 WBC RBC Hgb Hct MCV MCH MCHC RDW Plt Count MPV Neut % (Auto) Lymph % (Auto) [place] % (Auto) Eos % (Auto) Baso % (Auto) Neut # (Auto) Lymph # (Auto) [place] # (Auto) Eos # (Auto) Baso # (Auto) Sodium Potassium Chloride Carbon Dioxide Anion Gap BUN Creatinine Est GFR ( Amer) Est GFR (Non-Af Amer) Random Glucose Calcium Total Bilirubin AST ALT Alkaline Phosphatase Total Protein Albumin Globulin Albumin/Globulin Ratio Urine Color Urine Clarity Urine pH Ur Specific [place] Urine Protein Urine Glucose (UA) Urine Ketones Urine Blood Urine Nitrate Urine Bilirubin Urine Urobilinogen Ur Leukocyte Esterase Urine WBC (Auto) Urine RBC (Auto) Ur Squamous Epith Cells Ur Transition Epith Cell Urine Bacteria Urine Opiates Screen Positive H Urine Methadone Screen Negative Ur Barbiturates Screen Negative Ur Phencyclidine Scrn Negative Ur Amphetamines Screen Negative U Benzodiazepines Scrn Negative U Oth Cocaine Metabols Negative U Cannabinoids Screen Positive H Alcohol, Quantitative Assessment & Plan - Assessment and Plan (Free Text) Plan: Abscess of LEFT Hand secondary to Foreign Object * Leukocytosis of 13.5, Afebrile * Dr. Contreras consulted (hand surgery) * Clindamycin 300 mg PO Q6H * Florastor (not to be given within 2 hours of antibiotic dose) * CT Hand (05/28): A linear retained radiodense foreign body is suspected in the bilateral hand soft tissues extending from the level of the deep thenar eminence through the space between the 2nd and 3rd metacarpal bones terminating in an abscess status surrounds the extensor digitorum longus tendon. While this linear density is faintly appreciable on CT, it is probably not visible on fluoroscopy and may be difficult to localize. Osteomyelitis is felt to likely be developing at the periosteum of the proximal metaphysis radial side 3rd metacarpal bone although this could be posttraumatic. It would be difficult to exclude osteomyelitis here even with MRI most likely, however, MRI without contrast can be performed for additional characterization of this finding. Posttraumatic periostitis is unlikely given this reportedly a fragment from a palm leaf. Elevated ALT * Will monitor and consider hep panel Heroin Abuse * Dr. Berger seeing patient * Management as per primary team
[2017-06-17] MEDS ORDERED: Saccharomyces Boulardi 250 mg Cap PO SCH (10:00)
--- NOTE | 2017-06-17 10:27 | CP.PCM.CON ---
History of Present Illness - History of Present Illness History of Present Illness: Hand Surgery Consult for Dr. Contreras 31M consulted for left hand cellulitis/abscess s/p puncture wound from a thorn 4 weeks ago. Pt states he was working when he fell onto a thorn. The thorn entered through his thenar eminence between 1st and 2nd digit. Pt was previously seen in the ED on May 28 & at the time, imaging showed that the thorn was still in his hand with a fluid collection measuring 2.6 x 1.6 x 2.6 cm. Pt was also seen by Dr. Hanks hand surgery & was scheduled for OR but case was cancelled due to the pt eating the morning of. He was told to follow up outpatient but was noncompliant. Last week, the pt used a razor blade to open the wound & admits minimal white discharge from the wound. He admits to weakness and occasional numbness, however is able to move all fingers. He denies subjective fevers, chills, CP, SOB, N,V,D,C. PMHX: denies PSHX: Appendectomy MEDS: denies ALL: denies Social: Admits to smoking a pack of cigarettes a day, denies EtOH use, Admits to using 1 bundle of heroin a day, and unspecified amount of marijuana/day. Review of Systems - Review of Systems All systems: reviewed and no additional remarkable complaints except (as per HPI ) Past Patient History - Infectious Disease Hx of Infectious Diseases: None - Past Medical History & Family History Past Medical History?: No - Past Social History Smoking Status: Heavy Smoker > 10 Cigarettes Daily Alcohol: None Drugs: Cannabis, Opiates - CARDIAC Hx Hypertension: No - ENDOCRINE/METABOLIC Hx Diabetes Mellitus Type 1: Yes Hx Diabetes Mellitus Type 2: Yes - INTEGUMENTARY Other/Comment: osteomyelitis abscess - PSYCHIATRIC Hx Substance Use: Yes - SURGICAL HISTORY Hx Appendectomy: Yes - ANESTHESIA Hx Anesthesia: Yes Hx Anesthesia Reactions: No Meds Allergies/Adverse Reactions: Allergies Allergy/AdvReac Type Severity Reaction Status Date / Time Penicillins Allergy RASH Verified 06/02/17 23:26 - Medications Medications: Current Medications Al Hydrox/Mg Hydrox/Simethicone (Maalox 30 Ml) 30 ml PO TID PRN PRN Reason: Indigestion / Heartburn Buprenorphine HCl (Subutex) 8 mg SL DAILY DELILAH PRN Reason: Taper Stop: 06/22/17 09:59 Last Admin: 06/17/17 09:25 Dose: 8 mg Clindamycin HCl (Cleocin) 300 mg PO Q6H DELILAH PRN Reason: Protocol Clonidine HCl (Catapres) 0.1 mg PO Q8 PRN PRN Reason: COWS Score More or Equal to 5 Hydroxyzine HCl (Atarax) 50 mg PO Q6H PRN PRN Reason: Anxiety Loperamide HCl (Imodium) 2 mg PO Q8 PRN PRN Reason: Diarrhea Ondansetron HCl (Zofran Tab) 4 mg PO Q8 PRN PRN Reason: Nausea/Vomiting Saccharomyces Boulardii (Florastor) 250 mg PO DAILY DELILAH Trazodone HCl (Desyrel) 100 mg PO HS PRN PRN Reason: Insomnia Physical Exam - Constitutional Appears: Well, No Acute Distress - Head Exam Head Exam: ATRAUMATIC, NORMOCEPHALIC - Eye Exam Eye Exam: EOMI, Normal appearance Pupil Exam: PERRL - ENT Exam ENT Exam: Mucous Membranes Moist, Normal Exam - Neck Exam Neck exam: Positive for: Normal Inspection - Respiratory Exam Respiratory Exam: NORMAL BREATHING PATTERN - Cardiovascular Exam Cardiovascular Exam: REGULAR RHYTHM, RRR - GI/Abdominal Exam GI & Abdominal Exam: Soft - Extremities Exam Extremities exam: Positive for: tenderness - Expanded Upper Extremities Exam Left General: laceration (Self-inflicted on dorsal side of hand between 2nd and 3rd digit. Swelling and minimal erythema surrounding incision site, no active drainage. Range of motion intact in all fingers with +sensation) - Neurological Exam Neurological exam: Oriented x3 - Skin Skin Exam: Dry, Warm Results - Vital Signs Recent Vital Signs: Last Vital Signs Temp 98.2 F 06/17/17 05:44 Pulse 80 06/17/17 05:44 Resp 18 06/17/17 05:44 BP 110/68 06/17/17 05:44 Pulse Ox 99 06/17/17 05:44 - Labs Result Diagrams: 06/16/17 20:09 06/16/17 20:09 Labs: Laboratory Results - last 24 hr 06/16/17 06/16/17 06/16/17 20:09 20:09 20:23 WBC 13.5 H D RBC 4.69 Hgb 13.7 Hct 40.5 MCV 86.3 MCH 29.1 MCHC 33.7 RDW 13.5 Plt Count 316 MPV 7.6 Neut % (Auto) 62.5 Lymph % (Auto) 27.1 [place] % (Auto) 8.6 Eos % (Auto) 1.4 Baso % (Auto) 0.4 Neut # (Auto) 8.4 H Lymph # (Auto) 3.7 [place] # (Auto) 1.2 H Eos # (Auto) 0.2 Baso # (Auto) 0.0 Sodium 143 Potassium 4.5 Chloride 105 Carbon Dioxide 25 Anion Gap 16 BUN 12 Creatinine 1.1 Est GFR ( Amer) > 60 Est GFR (Non-Af Amer) > 60 Random Glucose 83 Calcium 9.0 Total Bilirubin 0.3 AST 59 D ALT 112 H D Alkaline Phosphatase 64 Total Protein 7.9 Albumin 4.0 Globulin 3.9 Albumin/Globulin Ratio 1.0 Urine Color Yellow Urine Clarity Clear Urine pH 5.0 Ur Specific Moon 1.024 Urine Protein Negative Urine Glucose (UA) Normal Urine Ketones Trace Urine Blood Negative Urine Nitrate Negative Urine Bilirubin Negative Urine Urobilinogen Normal Ur Leukocyte Esterase Neg Urine WBC (Auto) 1 Urine RBC (Auto) 2 Ur Squamous Epith Cells < 1 Ur Transition Epith Cell < 1 Urine Bacteria Rare Urine Opiates Screen Urine Methadone Screen Ur Barbiturates Screen Ur Phencyclidine Scrn Ur Amphetamines Screen U Benzodiazepines Scrn U Oth Cocaine Metabols U Cannabinoids Screen Alcohol, Quantitative < 10 06/16/17 20:23 WBC RBC Hgb Hct MCV MCH MCHC RDW Plt Count MPV Neut % (Auto) Lymph % (Auto) [place] % (Auto) Eos % (Auto) Baso % (Auto) Neut # (Auto) Lymph # (Auto) [place] # (Auto) Eos # (Auto) Baso # (Auto) Sodium Potassium Chloride Carbon Dioxide Anion Gap BUN Creatinine Est GFR ( Amer) Est GFR (Non-Af Amer) Random Glucose Calcium Total Bilirubin AST ALT Alkaline Phosphatase Total Protein Albumin Globulin Albumin/Globulin Ratio Urine Color Urine Clarity Urine pH Ur Specific Moon Urine Protein Urine Glucose (UA) Urine Ketones Urine Blood Urine Nitrate Urine Bilirubin Urine Urobilinogen Ur Leukocyte Esterase Urine WBC (Auto) Urine RBC (Auto) Ur Squamous Epith Cells Ur Transition Epith Cell Urine Bacteria Urine Opiates Screen Positive H Urine Methadone Screen Negative Ur Barbiturates Screen Negative Ur Phencyclidine Scrn Negative Ur Amphetamines Screen Negative U Benzodiazepines Scrn Negative U Oth Cocaine Metabols Negative U Cannabinoids Screen Positive H Alcohol, Quantitative - Imaging and Cardiology CT scan - Hand Status: Image reviewed by me, Report reviewed by me Assessment & Plan - Assessment and Plan (Free Text) Assessment: 31M with foreign body in Left hand with cellulitis vs abscess Plan: - recommend warm soaks with betadyne/saline - pain control - will discuss possible operative intervention for foreign body removal with Dr. Ben Calderon, PGY-3
--- NOTE | 2017-06-17 12:00 | PCM.PSYCH ---
Initial Psychiatric Evaluation - Initial Psychiatric Evaluation Type of Admission: Voluntary Legal Status: Capacity Chief Complaint (in patient's own words): "Heroin" History of Present Illness and Precipitating Events: The patient is seen, chart reviewed and case discussed. This is a 31-year-old male, single with no child, lives alone at the house a house. He is unemployed. The patient is using 10 backs IV heroin for 2 months but he started 5 years ago. This is his second detox and he has never been to rehabilitation. He also denies being in MAT program. He denies all other drugs and alcohol except for marijuana daily and cigarettes 1 pack per day. Past psych history: Denies Family psych history: Denies Medical history: Cellulitis in hand Current Medications: Active Medications Generic Name Dose Route Start Last Admin Trade Name Freq PRN Reason Stop Dose Admin Al Hydrox/Mg Hydrox/Simethicone 30 ml 06/16/17 21:43 Maalox 30 Ml PO TID PRN Indigestion / Heartburn Buprenorphine HCl 8 mg 06/17/17 10:00 06/17/17 09:25 Subutex SL 06/22/17 09:59 8 mg DAILY DELILAH Administration Taper Clindamycin HCl 300 mg 06/17/17 09:45 06/17/17 10:20 Cleocin PO 300 mg Q6H DELILAH Administration Protocol Clonidine HCl 0.1 mg 06/16/17 21:43 Catapres PO Q8 PRN COWS Score More or Equal to 5 Hydroxyzine HCl 50 mg 06/16/17 21:45 Atarax PO Q6H PRN Anxiety Loperamide HCl 2 mg 06/16/17 21:43 Imodium PO Q8 PRN Diarrhea Ondansetron HCl 4 mg 06/16/17 21:43 Zofran Tab PO Q8 PRN Nausea/Vomiting Saccharomyces Boulardii 250 mg 06/17/17 11:30 Florastor PO Q24H DELILAH Trazodone HCl 100 mg 06/16/17 21:45 Desyrel PO HS PRN Insomnia Past Psychiatric History - Past Psychiatric History Previous Treatment History: None Pertinent Medical Hx (Current Medical&Sleep Prob, Allergies): Allergies Allergy/AdvReac Type Severity Reaction Status Date / Time Penicillins Allergy RASH Verified 06/02/17 23:26 Benztropine [Benztropine Mesylate] 1 mg PO BID 05/28/17 Calcium Carbonate [Calcium Antacid] 500 mg PO BID 05/28/17 Colesevelam HCl [Welchol] 625 mg PO BID 05/28/17 RX: Haloperidol [Haldol] 10 mg PO DAILY 05/28/17 RX: Haloperidol [Haldol] 20 mg PO DAILY 05/28/17 RX: Omeprazole 40 mg PO DAILY 05/28/17 RX: Risperidone 4 mg PO BID 05/28/17 RX: Simvastatin 40 mg PO DAILY 05/28/17 Review of Systems - Integumentary Integumentary: New Lesions, Swelling - Neurological Neurological: Other - Psychiatric Psychiatric: Abnormal Sleep Pattern, Anxiety, Difficulty Concentrating, Irritability. absent: Depression, Hallucinations, Homicidal Ideation, Paranoia , Suicidal Ideation Mental Status Examination - Personal Presentation Personal Presentation: Looks stated age - Affect Affect: Constricted - Motor Activity Motor Activity: Calm - Reliability in Providing Information Reliability in Providing Information: Fair - Speech Speech: Organized - Mood Mood: Anxious - Formal Thought Process Formal Thought Process: No Impairment - Obsessions/Compulsions Obsessions: Yes Compulsions: Yes - Cognitive Functions Orientation: Person, Place, Situation, Time Sensorium: Alert Attention/Concentration: Attentive Estimate of Intelligence: Average Judgement: Intact, as evidence by: Insight regarding need for hospitalization Memory: Recent intact, as evidence by: Ability to recall events of the day, Remote intact, as evidenced by: Abilit to recall sig. life events - Risk Risk: Withdrawal, Diminished functioning - Strength & Assets Inventory Strength & Assets Inventory: Cooperative - Limitations Limitations: Living alone DSM 5 DX - DSM 5 DSM 5 Diagnosis: Opioid withdrawal opioid use d/o- severe Cannabis use d/o - severe - Recommended/Plan of Treatment Treatment Recommendations and Plan of Treatment: Taper with subutex Gabapentin for augmentation if needed As needed medications All risks, benefits and alternatives of the meds discussed, and the pt agreed and understood. Attend groups and activities Supportive therapy and psychoeducation DC for abstinence CBT for relapse prevention Encourage MAT Refer to rehab or IOP, and self-help groups Smoking cessation with DC Nicotine patch if needed Medical consult re cellulitis 34 min Projected ELOS: 4-5 days Prognosis: [facility] treatment Discharge Plan and Discharge Criteria: Refer to [facility]rehab in [facility] - He knows - Smoking Cessation Smoking Cessation Initiated: Yes
[2017-06-17] MEDS ORDERED: Piperacillin/Tazobact 3.375 GM in Sodium Chloride 100 ML IVPB SCH (12:15)
--- NOTE | 2017-06-17 12:28 | CP.PCM.PCO ---
Physician Communication Note - Physician Communication Note Physician Communication Note: Patient accepted by Dr. Cole. Started on zosyn and vancomycin.
[2017-06-17] MEDS: Saccharomyces Boulardi 250 mg Cap PO SCH (12:58)
[2017-06-17] MEDS ORDERED: Lidocaine 2% Inj (20ml) INFIL ONE (14:30)
[2017-06-17] MEDS: Vancomycin 1 gm/NS 200 ml 1 GM/200 ML BAG IVPB SCH (18:08)
[2017-06-17] MEDS: Tmp-Smz 800 mg-160 mg DS Tab PO SCH (20:01)
[2017-06-17 20:19] VITALS: RESP 20
--- NOTE | 2017-06-18 00:19 | CP.PCM.PN ---
Subjective - Date & Time of Evaluation Date of Evaluation: 06/18/17 Time of Evaluation: 00:16 - Subjective Subjective: Hand surgery for Dr. Lily Barros, PGY-1 Pt S & E at bedside. Pt with swelling/pain of dorsum of Left hand. Pt seen for bedside incision and drainage. Objective - Vital Signs/Intake and Output Vital Signs (last 24 hours): Temp Pulse Resp BP Pulse Ox 97.6 F 71 20 130/81 97 06/17/17 17:00 06/17/17 17:00 06/17/17 17:00 06/17/17 17:00 06/17/17 17:00 Intake and Output: 06/17/17 06/18/17 18:59 06:59 Intake Total 400 Balance 400 - Medications Medications: Current Medications Al Hydrox/Mg Hydrox/Simethicone (Maalox 30 Ml) 30 ml PO TID PRN PRN Reason: Indigestion / Heartburn Buprenorphine HCl (Subutex) 8 mg SL DAILY DELILAH PRN Reason: Taper Stop: 06/22/17 09:59 Last Admin: 06/17/17 09:25 Dose: 8 mg Clonidine HCl (Catapres) 0.1 mg PO Q8 PRN PRN Reason: COWS Score More or Equal to 5 Hydroxyzine HCl (Atarax) 50 mg PO Q6H PRN PRN Reason: Anxiety Vancomycin/Sodium Chloride (Vancomycin 1 Gm/Ns 200 Ml) 1 gm in 200 mls @ 133.333 mls/hr IVPB Q12H DELILAH PRN Reason: Protocol Last Admin: 06/17/17 18:08 Dose: Not Given Loperamide HCl (Imodium) 2 mg PO Q8 PRN PRN Reason: Diarrhea Ondansetron HCl (Zofran Tab) 4 mg PO Q8 PRN PRN Reason: Nausea/Vomiting Saccharomyces Boulardii (Florastor) 250 mg PO Q24H [facility] Last Admin: 06/17/17 12:58 Dose: 250 mg Trazodone HCl (Desyrel) 100 mg PO HS PRN PRN Reason: Insomnia Trimethoprim/Sulfamethoxazole (Bactrim Ds Tab) 1 tab PO Q12H DELILAH PRN Reason: Protocol Last Admin: 06/17/17 20:01 Dose: 1 tab - Labs Labs: 06/16/17 20:09 06/16/17 20:09 - Constitutional Appears: Non-toxic, No Acute Distress - Head Exam Head Exam: ATRAUMATIC, NORMAL INSPECTION, NORMOCEPHALIC - Eye Exam Eye Exam: EOMI, Normal appearance - ENT Exam ENT Exam: Mucous Membranes Moist, Normal Exam - Neck Exam Neck Exam: Full ROM, Normal Inspection - Respiratory Exam Respiratory Exam: NORMAL BREATHING PATTERN - Cardiovascular Exam Cardiovascular Exam: REGULAR RHYTHM, +S1, +S2 - Extremities Exam Extremities Exam: Tenderness. absent: Normal Inspection (Dorsum of Left hand between 2nd and 3rd digits with swelling, tenderness, fluctuance, erythema) - Neurological Exam Neurological Exam: Alert, Awake, CN II-XII Intact, Oriented x3 Neuro motor strength exam: Left Upper Extremity: 5 - Psychiatric Exam Psychiatric exam: Normal Affect, Normal Mood - Skin Skin Exam: Dry, Warm. absent: Normal Color (erythema of dorsum of left hand) Assessment and Plan - Assessment and Plan (Free Text) Assessment: 31M w/abscess of dorsum of left hand Plan: Local anesthesia Incision and drainage performed at bedside Consent in chart Wound cleaned and dressed DW attending Fiorella, PGY-1 Incision and Drainage - Time Time Performed: 23:35 - Time Out Time Out: Side verified, Site verified, Patient ID confirmed, Sterile procedures obs. - Procedure Procedure-Incision & Drainage: I & D of dorsum of Left hand - Consent obtained Consent obtained: Written - Performed by Performed by: Mid-level Provider - Indications Indications: Cutaneous abscess - Contraindications Contraindications: None - Location Location: Left, Dorsal, Skin abscess (left hand) - Dimensions Dimensions Length cm: 3cm Dimensions width cm: 3cm - Anesthetic Technique Anesthetic Technique: Local - Anesthetic Anesthetic: Lidocaine 2% - Procedure Procedure: Usual prep and drape, cm incision (2), Overlying area fluctuance, # scalpel used (10), Explored for loculations, Irrigated, Packed with sterile gauze - Drained Drained: ml blood (5) - Post-procedure Post procedure: Dressed - Complications Complications: None - Patient tolerated procedure Patient tolerated procedure: Well
[2017-06-18] MEDS: Tmp-Smz 800 mg-160 mg DS Tab PO SCH ×2 (06:15→18:15)
[2017-06-18 07:53] VITALS: O2SAT 98
[2017-06-18] MEDS: Buprenorphine Hydrochloride 2 mg SL SCH (09:50)
[2017-06-18] MEDS: Saccharomyces Boulardi 250 mg Cap PO SCH (10:36)
--- NOTE | 2017-06-18 14:42 | CP.PCM.HP ---
History of Present Illness - History of Present Illness History of Present Illness: CC: left hand swelling HPI: 31M consulted for left hand cellulitis/abscess s/p puncture wound from a thorn 4 weeks ago. Pt states he was working when he fell onto a thorn. The thorn entered through his thenar eminence between 1st and 2nd digit. Pt was previously seen in the ED on May 28 & at the time, imaging showed that the thorn was still in his hand with a fluid collection measuring 2.6 x 1.6 x 2.6 cm. Pt was also seen by Dr. Hanks hand surgery & was scheduled for OR but case was cancelled due to the pt eating the morning of. He was told to follow up outpatient but was noncompliant. Last week, the pt used a razor blade to open the wound & admits minimal white discharge from the wound. He admits to weakness and occasional numbness, however is able to move all fingers. He denies subjective fevers, chills, CP, SOB, N,V,D,C. Pt is active substance abuse user, transferred from psyc floor to medical floor PMHX: denies PSHX: Appendectomy MEDS: denies ALL: denies Social: Admits to smoking a pack of cigarettes a day, denies EtOH use, Admits to using 1 bundle of heroin a day, and unspecified amount of marijuana/day. Present on Admission - Present on Admission Any Indicators Present on Admission: Yes Review of Systems - Review of Systems Systems not reviewed;Unavailable: Acuity of Condition - Constitutional Constitutional: Lethargy, Malaise, Weakness - EENT Eyes: absent: As Per HPI, Blind Spots, Blurred Vision, Change in Vision, Decreased Night Vision, Diplopia, Discharge, Dry Eye, Exophthalmos, Floaters, Irritation, Itchy Eyes, Loss of Peripheral Vision, Pain, Photophobia, Requires Corrective Lenses, Sees Flashes, Spots in Vision, Tunnel Vision, Other Visual Disturbances, Loss of Vision, Other Nose/Mouth/Throat: absent: As Per HPI, Epistaxis, Nasal Congestion, Nasal Discharge, Nasal Obstruction, Nasal Trauma, Nose Pain, Post Nasal Drip, Sinus Pain, Sinus Pressure, Bleeding Gums, Change in Voice, Dental Pain, Dry Mouth, Dysphagia, Halitosis, Hoarsness, Lip Swelling, Mouth Lesions, Mouth Pain, Odynophagia, Sore Throat, Throat Swelling, Tongue Swelling, Facial Pain, Neck Pain, Neck Mass, Other - Cardiovascular Cardiovascular: absent: As Per HPI, Acrocyanosis, Chest Pain, Chest Pain at Rest , Chest Pain with Activity, Claudication, Diaphoresis, Dyspnea, Dyspnea on Exertion, Edema, Irregular Heart Rhythm, Pain Radiating to Arm/Neck/Jaw, Leg Edema, Leg Ulcers, Lightheadedness, Orthopnea, Palpitations, Paroxysmal Nocturnal Dyspnea, Pedal Edema, Radiating Pain, Rapid Heart Rate, Slow Heart Rate, Syncope, Other - Respiratory Respiratory: absent: As Per HPI, Cough, Dyspnea, Hemoptysis, Dyspnea on Exertion , Wheezing, Snoring, Stridor, Pain on Inspiration, Chest Congestion, Excessive Mucous Production, Change in Mucous Color, Pain with Coughing, Other - Gastrointestinal Gastrointestinal: absent: As Per HPI, Abdominal Pain, Belching, Bloating, Change in Bowel Habits, Change in Stool Character, Coffee Ground Emesis, Constipation, Cramping, Diarrhea, Dyspepsia, Dysphagia, Early Satiety, Excessive Flatus, Fecal Incontinence, Heartburn, Hematemesis, Hematochezia, Loose Stools, Melena, Nausea, Odynophagia, Temesmus, Vomiting, Other - Musculoskeletal Musculoskeletal: Radiating Pain into Limb - Integumentary Integumentary: Erythema, Swelling Past Patient History - Infectious Disease Hx of Infectious Diseases: None - Past Medical History & Family History Past Medical History?: No - Past Social History Smoking Status: Heavy Smoker > 10 Cigarettes Daily Alcohol: None Drugs: Cannabis, Opiates - CARDIAC Hx Hypertension: No - PULMONARY Hx Tuberculosis: No - NEUROLOGICAL Hx Seizures: No - HEENT Hx HEENT Problems: No - RENAL Hx Chronic Kidney Disease: No - ENDOCRINE/METABOLIC Hx Diabetes Mellitus Type 1: Yes Hx Diabetes Mellitus Type 2: Yes - HEMATOLOGICAL/ONCOLOGICAL Hx Human Immunodeficiency Virus (HIV): No - INTEGUMENTARY Other/Comment: osteomyelitis abscess - MUSCULOSKELETAL/RHEUMATOLOGICAL Hx Falls: No - GASTROINTESTINAL Hx Gastrointestinal Disorders: No - GENITOURINARY/GYNECOLOGICAL Hx Sexually Transmitted Disorders: No - PSYCHIATRIC Hx Substance Use: No - SURGICAL HISTORY Hx Appendectomy: Yes - ANESTHESIA Hx Anesthesia: Yes Hx Anesthesia Reactions: No Meds Allergies/Adverse Reactions: Allergies Allergy/AdvReac Type Severity Reaction Status Date / Time Penicillins Allergy RASH Verified 06/02/17 23:26 Physical Exam - Constitutional Appears: No Acute Distress - Eye Exam Eye Exam: EOMI, Normal appearance, PERRL Pupil Exam: NORMAL ACCOMODATION, PERRL - ENT Exam ENT Exam: Mucous Membranes Moist, Normal Exam - Respiratory Exam Respiratory Exam: Clear to Auscultation Bilateral, NORMAL BREATHING PATTERN - Cardiovascular Exam Cardiovascular Exam: REGULAR RHYTHM, +S1, +S2 - GI/Abdominal Exam GI & Abdominal Exam: Normal Bowel Sounds, Soft. absent: Tenderness - Rectal Exam Rectal Exam: Deferred - Extremities Exam Additional comments: Dorsum of Left hand between 2nd and 3rd digits with swelling, tenderness, fluctuance, erythema) - Back Exam Back exam: NORMAL INSPECTION - Neurological Exam Neurological exam: Alert, CN II-XII Intact, Normal Gait, Oriented x3, Reflexes Normal - Psychiatric Exam Psychiatric exam: Anxious Results - Vital Signs Recent Vital Signs: Last Vital Signs Temp 97.7 F 06/18/17 07:51 Pulse 64 06/18/17 07:51 Resp 20 06/18/17 07:51 BP 98/67 L 06/18/17 07:51 Pulse Ox 98 06/18/17 07:51 - Labs Result Diagrams: 06/16/17 20:09 06/16/17 20:09 Labs: Laboratory Results - last 24 hr 06/17/17 06/17/17 17:12 17:12 Hepatitis C Antibody Reactive HIV 1&2 Antibody Screen Negative Assessment & Plan (1) Opioid use disorder, severe, dependence Status: Acute (2) Abscess Assessment and Plan: pt is seen by surgery I and D Status: Acute (3) Foreign body of hand, left Status: Acute (4) Osteomyelitis of hand Status: Acute
[2017-06-18 18:06] VITALS: BP 114/69; PULSE 71; TEMP 97.3
[2017-06-18] MEDS: Vancomycin 1 gm/NS 200 ml 1 GM/200 ML BAG IVPB SCH (18:13)
--- NOTE | 2017-06-18 23:04 | CP.PCM.DIS ---
Provider - Provider Date of Admission: 06/16/17 20:59 Attending physician: Miki Cole MD Diagnosis - Discharge Diagnosis (1) Opioid use disorder, severe, dependence Status: Acute (2) Abscess Status: Acute (3) Foreign body of hand, left Status: Acute (4) Osteomyelitis of hand Status: Acute Hospital Course - Lab Results Lab Results: Micro Results 06/17/17 20:00 Blood Blood Culture - Preliminary NO GROWTH AFTER 24 HOURS 06/17/17 20:30 Blood Blood Culture - Preliminary NO GROWTH AFTER 24 HOURS Most Recent Lab Values WBC 13.5 K/uL (4.8-10.8) H D 06/16/17 20:09 RBC 4.69 Mil/uL (4.40-5.90) 06/16/17 20:09 Hgb 13.7 g/dL (12.0-18.0) 06/16/17 20:09 Hct 40.5 % (35.0-51.0) 06/16/17 20:09 MCV 86.3 fL (80.0-94.0) 06/16/17 20:09 MCH 29.1 pg (27.0-31.0) 06/16/17 20:09 MCHC 33.7 g/dL (33.0-37.0) 06/16/17 20:09 RDW 13.5 % (11.5-14.5) 06/16/17 20:09 Plt Count 316 K/uL (130-400) 06/16/17 20:09 MPV 7.6 fL (7.2-11.7) 06/16/17 20:09 Neut % (Auto) 62.5 % (50.0-75.0) 06/16/17 20:09 Lymph % (Auto) 27.1 % (20.0-40.0) 06/16/17 20:09 [place] % (Auto) 8.6 % (0.0-10.0) 06/16/17 20:09 Eos % (Auto) 1.4 % (0.0-4.0) 06/16/17 20:09 Baso % (Auto) 0.4 % (0.0-2.0) 06/16/17 20:09 Neut # (Auto) 8.4 K/uL (1.8-7.0) H 06/16/17 20:09 Lymph # (Auto) 3.7 K/uL (1.0-4.3) 06/16/17 20:09 [place] # (Auto) 1.2 K/uL (0.0-0.8) H 06/16/17 20:09 Eos # (Auto) 0.2 K/uL (0.0-0.7) 06/16/17 20:09 Baso # (Auto) 0.0 K/uL (0.0-0.2) 06/16/17 20:09 Sodium 143 mmol/L (132-148) 06/16/17 20:09 Potassium 4.5 mmol/L (3.6-5.2) 06/16/17 20:09 Chloride 105 mmol/L (98-107) 06/16/17 20:09 Carbon Dioxide 25 mmol/L (22-30) 06/16/17 20:09 Anion Gap 16 (10-20) 06/16/17 20:09 BUN 12 mg/dL (9-20) 06/16/17 20:09 Creatinine 1.1 mg/dL (0.8-1.5) 06/16/17 20:09 Est GFR ( Amer) > 60 06/16/17 20:09 Est GFR (Non-Af Amer) > 60 06/16/17 20:09 Random Glucose 83 mg/dL (75-110) 06/16/17 20:09 Calcium 9.0 mg/dl (8.6-10.4) 06/16/17 20:09 Total Bilirubin 0.3 mg/dL (0.2-1.3) 06/16/17 20:09 AST 59 U/L (17-59) D 06/16/17 20:09 ALT 112 U/L (21-72) H D 06/16/17 20:09 Alkaline Phosphatase 64 U/L (38-126) 06/16/17 20:09 Total Protein 7.9 g/dL (6.3-8.3) 06/16/17 20:09 Albumin 4.0 g/dL (3.5-5.0) 06/16/17 20:09 Globulin 3.9 gm/dL (2.2-3.9) 06/16/17 20:09 Albumin/Globulin Ratio 1.0 (1.0-2.1) 06/16/17 20:09 Urine Color Yellow (YELLOW) 06/16/17: Urine Clarity Clear (Clear) 06/16/17: Urine pH 5.0 (5.0-8.0) 06/16/17 20: Ur Specific [place] 1.024 (1.003-1.030) 06/16/17 20: Urine Protein Negative mg/dL (NEGATIVE) 06/16/17 Urine Glucose (UA) Normal mg/dL (Normal) 06/16/17 20: Urine Ketones Trace mg/dL (NEGATIVE) 06/16/17 20: Urine Blood Negative (NEGATIVE) 06/16/17: Urine Nitrate Negative (NEGATIVE) 06/16/17 Urine Bilirubin Negative (NEGATIVE) 06/16/17: Urine Urobilinogen Normal mg/dL (0.2-1.0) 06/16/17: Ur Leukocyte Esterase Neg Matthew/uL (Negative) 06/16/17: Urine WBC (Auto) 1 /hpf (0-5) 06/16/17: Urine RBC (Auto) 2 /hpf (0-3) 06/16/17: Ur Squamous Epith Cells < 1 /hpf (0-5) 06/16/17: Ur Transition Epith Cell < 1 /hpf (0-3) 06/16/17 20: Urine Bacteria Rare (<OCC) 06/16/17 20:23 Urine Opiates Screen Positive (NEGATIVE) H 06/16/17 20:23 Urine Methadone Screen Negative (NEGATIVE) 06/16/17: Ur Barbiturates Screen Negative (NEGATIVE) 06/16/17 20:23 Ur Phencyclidine Scrn Negative (NEGATIVE) 06/16/17 20:23 Ur Amphetamines Screen Negative (NEGATIVE) 06/16/17: U Benzodiazepines Scrn Negative (NEGATIVE) 06/16/17: U Oth Cocaine Metabols Negative (NEGATIVE) 06/16/17 20: U Cannabinoids Screen Positive (NEGATIVE) H 06/16/17 20:23 Alcohol, Quantitative < 10 mg/dl (0-10) 06/16/17 20:09 Hepatitis C Antibody Reactive (NEGATIVE) 06/17/17 17:12 HIV 1&2 Antibody Screen Negative (NEGATIVE) 06/17/17 17:12 - Hospital Course Hospital Course: 31M w/abscess of dorsum of left hand Plan: Local anesthesia Incision and drainage performed at bedside Consent in chart Wound cleaned and dressed Discharge Exam - Head Exam Head Exam: ATRAUMATIC, NORMAL INSPECTION, NORMOCEPHALIC Discharge Plan - Follow Up Plan Condition: GOOD Disposition: AGAINST MEDICAL ADVICE
== END 2017-06-18 20:05 | disposition left against medical advice (07) | DRG 743 ==
LOC: C.ER 19:09 → C.7D 20:59 → C.3T 06-17 17:17
PROVIDERS: ADMIT Internal Medicine; ATTEND Internal Medicine
PROC: 0X9K3ZZ Drainage of Left Hand, Percutaneous Approach (ICD-10-PCS; principal; 2017-06-18)
DX: F11.23 Opioid dependence with withdrawal (principal); E10.69 Type 1 diabetes mellitus with other specified complication; M86.9 Osteomyelitis, unspecified; M79.5 Residual foreign body in soft tissue; F17.210 Nicotine dependence, cigarettes, uncomplicated; F12.90 Cannabis use, unspecified, uncomplicated; Z88.0 Allergy status to penicillin; Z79.899 Other long term (current) drug therapy; Z91.19 Patient's noncompliance with other medical treatment and regimen; L02.512 Cutaneous abscess of left hand; Z83.3 Family history of diabetes mellitus